=== PATIENT | female | born 1995 | race Two or more races ===

== ENCOUNTER 2025-11-08 14:16 | Emergency (ER) | payer OTHER ==
[~2025-11-08] VITALS: Ht 160 cm; Wt 53.5 kg
[2025-11-08] MEDS ORDERED: ONDANSETRON HCL 2 MG/ML VIAL IV STA (15:53)
[2025-11-08] MEDS ORDERED: KETOROLAC TROMETHAMINE 30 MG VIAL IM STA (15:53)
[2025-11-08] MEDS ORDERED: 0.9 % SODIUM CHLORIDE 500 ML IV STA (15:54)
[2025-11-08 17:10] LABS: BASO % 0.5 % (0.1-1.2); EOS # 0.11 (0.04-0.54); EOS % 1.4 % (0.7-7.0); LYMPH # 3.25 (1.18-3.74); LYMPH % 41.0 % (19.3-53.1); MEAN PLATELET VOLUME 9.20 fl (9.4-12.4); MONO # 0.70 (0.24-0.82); MONO % 8.8 % (4.7-12.5); NEUT # 3.80 (1.56-6.13); NEUT % 47.9 % (34.0-71.1); RED CELL DISTRIBUTION WIDTH 12.1 % (11.6-14.4)
[2025-11-08 17:46] LABS: BUN CREA RATIO 21.0 (7.0-25.0); CREATININE SERUM 0.73 mg/dL (0.55-1.02); GFR 95.63; GLUCOSE FASTING 88.0 mg/dL (65-100); OSMOLALITY SERUM 280.0 MOSM/KG (275-295)
[2025-11-08] MEDS ORDERED: ONDANSETRON ODT4 MG PO (18:08)
[2025-11-08] MEDS ORDERED: NABUMETONE750 MG PO (18:08)
== END 2025-11-08 18:31 | disposition home or self-care (01) ==
LOC: ER 14:16
PROVIDERS: General Practice
DX: R10.22 Pelvic and perineal pain left side (principal); Z87.898 Personal history of other specified conditions; R11.0 Nausea; D25.9 Leiomyoma of uterus, unspecified